=== PATIENT | male | born 1950 | race Native Hawaiian/Other Pacific Islander ===

== ENCOUNTER 2016-06-11 07:52 | Outpatient (CLI) | payer BC | END 2016-06-11 09:00 | disposition home or self-care (01) | LOC: CT 07:52 | DX: K40.90 Unilateral inguinal hernia, without obstruction or gangrene, not specified as recurrent (principal) | CPT/HCPCS: 36415; 82565; 84520; Q9963 ==

== ENCOUNTER 2016-06-29 11:13 | Outpatient (CLI) | payer BC | END 2016-06-29 12:30 | disposition home or self-care (01) | LOC: RESP 11:13 | DX: I25.10 Atherosclerotic heart disease of native coronary artery without angina pectoris (principal); Z01.810 Encounter for preprocedural cardiovascular examination ==

== ENCOUNTER 2016-07-30 07:36 | Day surgery (SDC) | payer BC ==
[2016-07-09 09:22] LABS: POTASSIUM 4.2 mmol/L (3.6-5.2); SODIUM 136 mmol/L (136-145)
[2016-07-09 09:38] LABS: PARTIAL THROMBOPLASTIN TIME 26.7 SECONDS (24.5-33.6)
[2016-07-09 09:41] LABS: PLATELET COUNT 281 K/uL (142-355)
== END 2016-07-30 11:15 | disposition home or self-care (01) ==
LOC: OR 07:36
PROVIDERS: Student in an Organized Health Care Education/Training Program
PROC: 0YU60JZ Supplement Left Inguinal Region with Synthetic Substitute, Open Approach (ICD-10-PCS; principal; 2016-07-30)
DX: K40.90 Unilateral inguinal hernia, without obstruction or gangrene, not specified as recurrent (principal)
CPT/HCPCS: 36415; 80053; 85027; 85610; 85730; C1729; C1781; J0132; J0330; J0690; J1170; J2250; J3010; J3490; S0028

== ENCOUNTER → 2018-07-09 | Outpatient (CLI) | payer BC | LOC: AMB 14:15 | DX: S00.01XA Abrasion of scalp, initial encounter (principal); W22.8XXA Striking against or struck by other objects, initial encounter; Y92.017 Garden or yard in single-family (private) house as the place of occurrence of the external cause ==